=== PATIENT | male | born 1990 | race Caucasian/White ===

== ENCOUNTER 2017-07-29 16:17 | Emergency (ER) | payer SELFPAY ==
--- NOTE | 2017-07-29 16:51 | EDPHYS ---
Physician Documentation [facility] Name: Art Kramer Age: 26 yrs Sex: Male : 1990 Arrival Date: 07/29/2017 Time: 16:21 Bed 24 Private MD: None, None ED Physician Tim Penaloza HPI: 07/29 16:48 This 26 yrs old Male presents to ER via Ambulatory with complaints of STD kb Exposure. 16:48 The patient presents with a possible STD exposure, the patient has no apparent kb symptoms. Onset: The symptoms/episode began/occurred a while ago. Associated signs and symptoms: The patient has no apparent associated signs or symptoms. The patient has not experienced similar symptoms in the past. The patient has not recently seen a physician. Pt states "I messed around with this girl a while ago and she called to tell me she had herpes recently, but I wasn't the last glenys she was with. I don't have any symptoms, but wanted to get checked.". Historical: - Allergies: 16:38 No Known Allergies; la1 - PMHx: 16:38 None; la1 - Immunization history:: Adult Immunizations up to date. - Social history:: Smoking status: Patient/guardian denies using tobacco. ROS: 16:47 Constitutional: Negative for fever, chills, and weight loss, Cardiovascular: Negative kb for chest pain, palpitations, and edema, Respiratory: Negative for shortness of breath, cough, wheezing, and pleuritic chest pain, Abdomen/GI: Negative for abdominal pain, nausea, vomiting, diarrhea, and constipation, Back: Negative for injury and pain, : Negative for injury, bleeding, discharge, and swelling, MS/Extremity: Negative for injury and deformity, Skin: Negative for injury, rash, and discoloration, Neuro: Negative for headache, weakness, numbness, tingling, and seizure. Exam: 16:47 Constitutional: This is a well developed, well nourished patient who is awake, alert, kb and in no acute distress. Head/Face: Normocephalic, atraumatic. Chest/axilla: Normal chest wall appearance and motion. Nontender with no deformity. No lesions are appreciated. Cardiovascular: Regular rate and rhythm with a normal S1 and S2. No gallops, murmurs, or rubs. Normal PMI, no JVD. No pulse deficits. Respiratory: Lungs have equal breath sounds bilaterally, clear to auscultation and percussion. No rales, rhonchi or wheezes noted. No increased work of breathing, no retractions or nasal flaring. Abdomen/GI: Soft, non-tender, with normal bowel sounds. No distension or tympany. No guarding or rebound. No evidence of tenderness throughout. Skin: Warm, dry with normal turgor. Normal color with no rashes, no lesions, and no evidence of cellulitis. MS/ Extremity: Pulses equal, no cyanosis. Neurovascular intact. Full, normal range of motion. Neuro: Awake and alert, GCS 15, oriented to person, place, time, and situation. Cranial nerves II-XII grossly intact. Motor strength 5/5 in all extremities. Sensory grossly intact. Cerebellar exam normal. Normal gait. Vital Signs: 16:38 BP 124 / 84; Pulse 83; Resp 19; Temp 97.5; Pulse Ox 100% on R/A; Weight 83.91 kg; la1 Height 5 ft. 11 in. (180.34 cm); 16:38 Body Mass Index 25.80 (83.91 kg, 180.34 cm) la1 MDM: 16:46 Patient medically screened. kb 16:46 Data reviewed: vital signs, nurses notes. Data interpreted: Pulse oximetry: on room air kb is 100 %. Interpretation: normal. Counseling: I had a detailed discussion with the patient and/or guardian regarding: the historical points, exam findings, and any diagnostic results supporting the discharge/admit diagnosis, the need for outpatient follow up, a family practitioner, to return to the emergency department if symptoms worsen or persist or if there are any questions or concerns that arise at home. Administered Medications: No medications were administered Disposition: 16:49 Person with feared medical complaint in which no diagnosis is made. kb Disposition: 07/29/17 16:51 Discharged to Home. Impression: Encounter for screening, unspecified. - Condition is Stable. - Medication Reconciliation Form, Thank You Letter, Antibiotic Education, Prescription Opioid Use form. - Follow up: Emergency Department; When: As needed; Reason: Worsening of condition. Follow up: Private Physician; When: 2 - 3 days; Reason: Recheck today's complaints, Continuance of care, Re-evaluation by your physician. Addendum: 08/07/2017 05:54 Co-signature as Attending Physician, Tim Penaloza MD I agree with the assessment and w a plan of care. Signatures: Donna Batista FNP-C FNP-Moe Pete, RN RN la1 Tim Penaloza MD MD ms Yoselyn Randall, RN RN tl3 Corrections: (The following items were deleted from the chart) 07/29 17:00 16:51 07/29/2017 16:51 Discharged to Home. Impression: Encounter for screening, tl3 unspecified. Condition is Stable. Forms are Medication Reconciliation Form, Thank You Letter, Antibiotic Education, Prescription Opioid Use. Follow up: Emergency Department; When: As needed; Reason: Worsening of condition. Follow up: Private Physician; When: 2 - 3 days; Reason: Recheck today's complaints, Continuance of care, Re-evaluation by your physician. kb
--- NOTE | 2017-07-29 16:51 | ER ---
Nurse's Notes [facility] Name: Art Kramer Age: 26 yrs Sex: Male : 1990 Arrival Date: 07/29/2017 Time: 16:21 Bed 24 Private MD: None, None Diagnosis: Encounter for screening, unspecified Presentation: 07/29 16:37 Presenting complaint: Patient states: My ex form a few months ago told me she has la1 herpes and I want to be checked. I dont have any sx but I want to be sure. Transition of care: patient was not received from another setting of care. Onset of symptoms was July 29, 2017. Initial Sepsis Screen: Does the patient meet any 2 criteria? No. Patient's initial sepsis screen is negative. Does the patient have a suspected source of infection? No. Patient's initial sepsis screen is negative. Care prior to arrival: None. 16:37 Method Of Arrival: Ambulatory la1 16:37 Acuity: MARIA DE JESUS 5 la1 Triage Assessment: 17:00 General: Appears in no apparent distress. Behavior is appropriate for age. Pain: Denies tl3 pain. Historical: - Allergies: 16:38 No Known Allergies; la1 - PMHx: 16:38 None; la1 - Immunization history:: Adult Immunizations up to date. - Social history:: Smoking status: Patient/guardian denies using tobacco. Screenin:59 Abuse screen: Denies threats or abuse. Nutritional screening: No deficits noted. tl3 Tuberculosis screening: No symptoms or risk factors identified. Fall Risk None identified. Assessment: 16:58 General: pt screened by Lisa Batista and cleared for discharge. tl3 Vital Signs: 16:38 BP 124 / 84; Pulse 83; Resp 19; Temp 97.5; Pulse Ox 100% on R/A; Weight 83.91 kg; la1 Height 5 ft. 11 in. (180.34 cm); 16:38 Body Mass Index 25.80 (83.91 kg, 180.34 cm) la1 ED Course: 16:21 Patient arrived in ED. mr 16:21 None, None is Private Physician. mr 16:38 Triage completed. la1 16:38 Arm band placed on left wrist. la1 16:46 Donna Batista FNP-C is [facility]. kb 16:46 Tim Penaloza MD is Attending Physician. kb 16:58 Yoselyn Randall, RN is Primary Nurse. tl3 16:59 Patient has correct armband on for positive identification. tl3 16:59 No provider procedures requiring assistance completed. Patient did not have IV access tl3 during this emergency room visit. Administered Medications: No medications were administered Outcome: 16:51 Discharge ordered by MD. kb 16:59 Discharged to home ambulatory. tl3 16:59 Condition: good 16:59 Discharge instructions given to patient. 17:00 Patient left the ED. tl3 Signatures: Donna Batista, DONOR CENTER TECHNICIAN-C DONOR CENTER TECHNICIAN-Jessica Quiroga mr TiprachelMoe, RN RN la1 Yoselyn Randall, RN RN tl3
== END 2017-07-29 17:00 | disposition home or self-care (01) ==
LOC: ER 16:17
DX: Z13.9 Encounter for screening, unspecified (principal)
CPT/HCPCS: 99281